=== PATIENT | female | born 1960 | race Caucasian/White ===

== ENCOUNTER 2023-08-20 11:12 | Emergency (ER) | payer MEDICARE, OTHER ==
[~2023-08-20] VITALS: Ht 152.4 cm; Wt 70.0 kg
[~2023-08-20 11:12] MED LIST: LEVO-72 PO
[2023-08-20 11:15] VITALS: BP 131/65; TEMP 98.4
[2023-08-20 11:51] LABS: BASOPHILS % (AUTO) 0.7 % (0.0-2.0); EOSINOPHILS % (AUTO) 2.3 % (1.0-6.0); HEMATOCRIT 38.1 % (36-46); HEMOGLOBIN 12.8 g/dL (12.0-16.0); LYMPHOCYTES # (AUTO) 0.7 K/uL (1.0-4.8); LYMPHOCYTES % (AUTO) 9.5 % (22.0-44.0); MEAN CORPUSCULAR HEMOGLOBIN 29.5 pg (26.0-34.0); MEAN CORPUSCULAR HGB CONC 33.5 G/dL (31.0-37.0); MEAN CORPUSCULAR VOLUME 88 fL (80-100); MONOCYTES % (AUTO) 12.6 % (2.0-9.0); NEUTROPHILS # (AUTO) 5.9 K/uL (1.8-7.7); NEUTROPHILS % (AUTO) 74.9 % (40.0-70.0); PLATELET COUNT (AUTO) 271 K/uL (150-450); RED BLOOD CELL COUNT(AUTO) 4.32 MIL/uL (4.00-5.20); RED CELL DISTRIBUTION WIDTH 13.5 % (11.5-14.5); WHITE BLOOD COUNT (AUTO) 7.8 K/uL (4.5-11.0)
[2023-08-20 11:58] LABS: ANION GAP 7 mmol/L (8-16); CALCIUM, TOTAL 8.9 mg/dL (8.8-10.5); CARBON DIOXIDE 28 mmol/L (22-29); CHLORIDE 102 mmol/L (98-107); CREATININE 0.83 mg/dL (0.60-1.30); GLOMERULAR FILTR. RATE CALC > 60 mL/min (>60); GLUCOSE,RANDOM 96 mg/dL (70-110); POTASSIUM 3.7 mmol/L (3.5-5.1); SODIUM SERUM 137 mmol/L (136-145); UREA NITROGEN, BLOOD 6 mg/dL (7-18)
[2023-08-20 11:58] LABS: COVID AG,FIA SOURCE NASAL SWAB
[2023-08-20 12:22] LABS: INFLUENZA TYPE A NEGATIVE FOR TYPE A (NEGATIVE); INFLUENZA TYPE B NEGATIVE FOR TYPE B (NEGATIVE)
[2023-08-20 12:28] LABS: SARS-COV2 (COVID) ANTIGEN,FIA Positive (Negative)
[2023-08-20 12:45] VITALS: PULSE 76; PULSE 77; RESP 16; O2SAT 96; O2SAT 98
[2023-08-20] MEDS ORDERED: NIRM1TAB10 PO (12:47)
[2023-08-20] MEDS: ALBUTEROL SULFATE HFA 90 MCG/PUFF 8 GM INHALER IH ONE (12:57)
== END 2023-08-20 13:02 | disposition home or self-care (01) ==
LOC: EMS 11:12
DX: U07.1 COVID-19 (principal); I10 Essential (primary) hypertension; F17.210 Nicotine dependence, cigarettes, uncomplicated; Z88.0 Allergy status to penicillin; Z88.8 Allergy status to other drugs, medicaments and biological substances
CPT/HCPCS: 99284; 71045; 87426; 80048; 85025; 87804; 36415; 94640; J3535